=== PATIENT | female | born 1975 | race Caucasian/White ===

== ENCOUNTER 2021-06-18 17:09 | Emergency (ER) | payer OTHER, SELFPAY ==
[2021-06-18 17:18] VITALS: BP 116/77; PULSE 75; RESP 16; TEMP 36.7; O2SAT 100
--- NOTE | 2021-06-18 17:25 | ED.GENADULT ---
HPI - General Adult General Chief complaint: Upper Respiratory Infection Stated complaint: body aches/fatigue/tolliver Time Seen by Provider: 06/18/21 17:25 Source: patient and RN notes reviewed Mode of arrival: ambulatory Limitations: no limitations History of Present Illness HPI narrative: 46-year-old female presents with complaints of possible COVID-19 symptoms, headache (not the worst of her life), body aches, sore throat, and fatigue for the past 3 days. ?Vilma reports having similar symptoms a year ago when she had COVID-19. ?Tylenol took last today at 14:00 without relief. ?Denies cough or chest congestion. ?No Rhinorrhea and nasal congestion. ?Sore throat. ?Pain is bilateral. ?Hurts to swallow. ?No drooling, neck or throat swelling. ?No voice change. ?Denies fevers. ?No nausea, vomiting, and abdominal pain. ?Tolerating po intake well. ?Denies chest pain, coughing up blood, facial pain, and rash. ?Denies exposures to COVID-19. ?The patient reports she was diagnosed with COVID-30 June 2020. ?The patient reports she is not waiting for the results of a COVID-19 lab test. ?The patient reports she does not have sweats, dizziness, weakness, or myalgia. ?The patient reports she does not have a worsening cough. ?The patient reports she does not have any loss of smell or taste or diarrhea. ?Denies recent traveling. ?Vilma reports concerns for COVID-19 but no exposures. ?At this time, the patient is suspected of having COVID-19. Some parts of this dictation were generated by voice recognition software and may contain typographical and/or grammatical inaccuracies. Related Data Home Medications Medication Instructions Recorded Confirmed famotidine 20 mg tablet 20 mg PO DAILY 07/21/20 propranolol 80 mg capsule,extended 80 mg PO DAILY 07/21/20 release 24 hr Allergies Allergy/AdvReac Type Severity Reaction Status Date / Time azithromycin Allergy Severe feet and Verified 07/21/20 09:33 hands swell and throat swells Penicillins Allergy Mild Swelling Verified 07/21/20 09:33 Review of Systems Review of Systems: CONSTITUTIONAL: Denies fever, chills, sweats. Complaints of fatigue. EYES: Denies visual changes, redness, discharge. ENT: Denies rhinorrhea, congestion, otalgia. Complaints of sore throat. CARDIOVASCULAR: Denies chest pain, palpitations, edema. RESPIRATORY: Denies wheezing, dyspnea, cough. GASTROINTESTINAL: Denies abdominal pain, nausea, vomiting, diarrhea. SKIN: Denies rash or itching. MUSCULOSKELETAL: Denies acute back pain, joint pain, myalgia. Complaints of fatigue. NEUROLOGIC: Denies numbness or focal weakness. PSYCHIATRIC: Denies anxiety or depression. Complaints of TOLLIVER. All systems reviewed & are unremarkable except as noted in HPI and below. [facility] Past Medical History Medical History (Updated 06/21/21 @ 19:59 by EVARISTO Conde) Acid reflux COVID-19 06/2020 Hx of migraines Surgical History Surgical History (Updated 06/18/21 @ 17:38 by EVARISTO Conde) History of adenoidectomy History of tonsillectomy Family History Family History (Updated 06/18/21 @ 17:39 by EVARISTO Conde) Father Lymphoma in remission Mother Diabetes mellitus Social History Social History (Updated 06/18/21 @ 17:39 by EVARISTO Conde) Smoking status: Never smoker Tobacco type: cigarettes Second hand tobacco smoke exposure: No Alcohol intake: never Substance use: never Substance use type: does not use Living arrangements: with family Occupation/Education: occupation Gender identity (if verbalized by the patient): Female Sexual Orientation (if Verbalized by the Patient): Straight or Heterosexual Comments At time of signature, agree with the nurse past medical, surgical, social, and family history. There is relevant patient's history pertinent to the presenting complaintno relevant family history pertinent to the presenting complaint. Exam Narrative
[2021-06-20 17:31] LABS: SARS-CoV-2 RNA PCR Negative
== END 2021-06-18 17:51 | disposition home or self-care (01) ==
PROVIDERS: Emergency Provider Nurse Practitioner Family; PCP Family Medicine Adolescent Medicine
DX: B34.9 Viral infection, unspecified (principal); Z20.822 Contact with and (suspected) exposure to COVID-19; K21.9 Gastro-esophageal reflux disease without esophagitis; Z86.16 Personal history of COVID-19
CPT/HCPCS: 99213; C9803; G0463; U0003; U0005

== ENCOUNTER 2025-04-06 12:24 | Emergency (ER) | payer OTHER, SELFPAY ==
--- NOTE | ~2025-04-06 | XR_ITS ---
HISTORY: dropped something on foot COMPARISON: None TECHNIQUE: 3 views of the left foot were performed FINDINGS: No acute fracture or dislocation is appreciated. No significant degenerative disease is noted. The base of the fifth metatarsal is intact. A small calcaneal spur is noted, along with ossification of the insertion of the Achilles tendon. No significant soft tissue swelling is present. IMPRESSION: Degenerative disease, without acute fracture, as detailed above. Reviewed, dictated and finalized at location A.
--- NOTE | 2025-04-06 12:28 | ED_ITS ---
HPI - Extremity Injury (Lower) General Chief Complaint: Extremity Injury, Lower Stated Complaint: bruised foot Time Seen by Provider: 04/06/25 12:37 Source: patient, RN notes reviewed and old records reviewed Mode of arrival: ambulatory Limitations: no limitations History of Present Illness HPI Narrative: 49-year-old female presents to the [facility] with a bruise to the her foot. States that she dropped shower head on the foot on Sunday. Still having discomfort. Bruising is noted around the and MTP 1st, great toe, medial aspect Tenderness to the MTP Has been taking Advil Onset (ago): day(s) (5) Treatments prior to arrival: NSAIDS Related Data Allergies Allergy/AdvReac Type Severity Reaction Status Date / Time azithromycin Allergy Severe feet and Verified 04/06/25 12:31 hands swell and throat swells Penicillins Allergy Mild Swelling Verified 04/06/25 12:31 Review of Systems 2 Review of Systems: All systems reviewed & are unremarkable except as noted in HPI and below Constitutional: Constitutional: Reports no additional constitutional complaints ENT: Reports system reviewed and no additional complaints, except as documented Musculoskeletal: Musculoskeletal: Reports as per HPI Integumentary/Breasts: Skin/Breast: Reports system reviewed and no additional complaints, except as docu [facility] Past Medical History Medical History Screening mammogram, encounter for Encounter for IUD removal 06/07/11 Mirena removal/reinsertion 07/05/11 Mirena removal (migrated)/reinsertion 04/06/16 Mirena removal via hscope in [place] 04/01/21 Mirena removal/reinsertion Encounter for IUD insertion 06/10/07 Mirena insertion 06/07/11 Mirena removal/reinsertion 07/05/11 Mirena removal (migrated)/reinsertion 04/11/16 Mirena insertion 04/01/21 Mirena removal/reinsertion Acid reflux Hx of migraines COVID-19 06/2020 Surgical History Surgical History History of hysteroscopy (04/06/16) hscope IUD removal History of adenoidectomy History of tonsillectomy Family History Family History Father Lymphoma in remission Hypertension Mother Diabetes mellitus Social History Social History Smoking status: Never smoker Tobacco type: cigarettes Second hand tobacco smoke exposure: No Alcohol intake: never Substance use: never Substance use type: does not use Do You Feel Safe in your Home?: Yes Lack of Transportation: No Lack of Food: Never True Current Housing: Decline to Answer Concerned About Future Housing: Decline to Answer Difficulty Paying Gas/Electric Bills: Decline to Answer Difficulty Paying for Meds: Decline to Answer Currently Unemployed: Decline to Answer Education: Decline to Answer Difficulty w/ Childcare or Family Care: Decline to Answer Living arrangements: with family Additional living arrangements comments: Occupation/Education: occupation Additional occupation/education comments: coffee shop aide Gender identity (if verbalized by the patient): Female Sexual Orientation (if Verbalized by the Patient): Straight or Heterosexual Spiritual care concerns: No Agree to blood products: Yes Comments At the time of my signature, I reviewed and agree with the nursing past medical, surgical, social, and family history. There is no relevant family history pertinent to the patient complaint. Exam 2 Const: General: cooperative, healthy appearing, comfortable, no acute distress, well developed, alert and well nourished Nutritional Appearance: w ell nourished Orientation/consciousness: patient oriented x3 Limitations: no limitations HENMT: Head: normal to inspection Eyes: General: appearance normal, both eyes and all related structures A lignment and Position: alignment normal Neck: Neck: normal visual inspection, full ROM, no lymphadenopathy and no meningeal signs Chest: Chest palpation & inspection: normal inspection of the chest Resp: Effort & Inspection: normal respiratory effort and able to speak in complete sentences Cardio: Rate: regular rate Skin: General skin exam: normal color and no rashes or lesions noted Neuro: General: patient oriented x3, moves all extremities and no meningeal signs Cognition (Neuro): normal cognition Speech: normal speech Extrem: General: normal to inspection, full ROM, capillary refill normal and normal gait Left lower extremity: foot Details: tenderness, toes with normal ROM, ecchymosis (Around 1st MTP), vascular exam Details: dorsalis pedis pulse present and normal capillary refill and motor-sensory exam light-touch normal; no foreign bodies and no puncture wound Ankle/foot/toe images: 1. Bruising, tenderness, no swelling noted Psych: Appearance: grossly normal and well kempt Mental Status: mental status grossly normal Speech and movement: Normal speech and movement present and Clear speech present Affect: normal affect Attitude: cooperative Course Course Level of Care: Express Care Visit Vital Signs Vital signs: Vital Signs Temperature 98.5 F 04/06/25 12:36 Pulse Rate 50 L 04/06/25 12:36 Respiratory Rate 20 04/06/25 12:36 Blood Pressure 104/59 L 04/06/25 12:36 Pulse Oximetry 100 04/06/25 12:36 Oxygen Delivery Room Air 04/06/25 12:36 Temperature 98.5 F 04/06/25 12:36 Pulse Rate 50 L 04/06/25 12:36 Respiratory Rate 20 04/06/25 12:36 Blood Pressure 104/59 L 04/06/25 12:36 Pulse Oximetry 100 04/06/25 12:36 Oxygen Delivery Room Air 04/06/25 12:36 Reviewed MDM - Extremity Injury (Lower) MDM Narrative Medical decision making narrative: Patient sitting in exam room. Patient is nontoxic vitals are stable. Patient presents with bruising and tenderness to surrounding tissue near the MTP 1st left foot. Patient x-rays negative. Patient is appropriate for outpatient treatment with close follow-up Discharge instructions reviewed with patient, as well as provided in writing per nursing staff. The instructions also include specific and strict return/GO TO THE ER as well as f/u information. All questions have been answered, and the patient deny any further questions with discharge and discharge plan. Some parts of this dictation were generated by voice recognition software and may contain typographical and/or grammatical inaccuracies. Differential Diagnosis Differential diagnosis: Likely other (Foot contusion, foot fracture) Imaging Data Radiologist's impression: HISTORY: dropped something on foot COMPARISON: None TECHNIQUE: 3 views of the left foot were performed FINDINGS: No acute fracture or dislocation is appreciated. No significant degenerative disease is noted. The base of the fifth metatarsal is intact. A small calcaneal spur is noted, along with ossification of the insertion of the Achilles tendon. No significant soft tissue swelling is present. IMPRESSION: Degenerative disease, without acute fracture, as detailed above. Critical Care Time Critical Care Time Critical Care Time: No Discharge Plan Discharge Clinical Impression: Contusion of left foot Qualifiers: Encounter type: initial encounter Qualified Code(s): S90.32XA - Contusion of left foot, initial encounter Patient Disposition: Home Condition: Stable Instructions: Antibiotic Form, Contusion in Adults (ED) Additional Instructions: Your Xray did not show a fracture. Wear good supportive shoes at all times. Ice should be applied to help reduce swelling. It can be used for 20 to 30 minutes, every 2-3 hours while awake. Do not apply ice directly to your skin. You can alternate ibuprofen 600mg and Tylenol 650mg every 4 hours as needed for pain Please schedule a follow-up visit with your personal physician for further evaluation and treatment within 2 weeks especially if symptoms persist. For new or worsening symptoms go directly to the emergency room Patient Language: Maltese Prescriptions: No Action famotidine 20 mg tablet 20 mg PO BID Qty: 60 5RF propranolol 80 mg tablet See Rx Instructions .ROUTE .COMPLEX Qty: 180 0RF Dose Instruction: TAKE 1 TABLET BY MOUTH TWICE DAILY Rx Instructions: TAKE 1 TABLET BY MOUTH TWICE DAILY Follow-up/Referrals: Blayne Snyder MD [Primary Care Provider] - 2 Weeks ([facility] care follow up ) Time of Disposition: 13:34
[2025-04-06 12:36] VITALS: BP 104/59; PULSE 50; RESP 20; TEMP 36.9; O2SAT 100
== END 2025-04-06 13:40 | disposition home or self-care (01) ==
PROVIDERS: Emergency Provider Nurse Practitioner; PCP Family Medicine Adolescent Medicine
DX: S90.32XA Contusion of left foot, initial encounter (principal); W20.8XXA Other cause of strike by thrown, projected or falling object, initial encounter; K21.9 Gastro-esophageal reflux disease without esophagitis; Z86.16 Personal history of COVID-19
CPT/HCPCS: 73630; 99213; G0463

== ENCOUNTER 2025-05-07 10:02 | Emergency (ER) | payer OTHER, SELFPAY ==
[2025-05-07 10:11] VITALS: BP 100/69; PULSE 56; RESP 20; TEMP 36.7; O2SAT 100
--- NOTE | 2025-05-07 10:14 | ED.URI ---
HPI - URI/Sore Throat General Chief Complaint: Upper Respiratory Infection Stated Complaint: Sore Throat Time Seen by Provider: 05/07/25 10:14 History of Present Illness HPI Narrative: 50 y/o female presented for c/o sore throat and left ear pain x5 days. States it feels like 'swallowing knives.' Pain is worse on the left side of the throat as well. Endorses nasal congestion and drainage, sinus pressure and mild cough for 2 weeks. hx tonsillectomy. Pt had negative home covid test. Taking Zyrtec D, Nyquil, and Chloraseptic spray. Related Data Allergies Allergy/AdvReac Type Severity Reaction Status Date / Time azithromycin Allergy Severe feet and Verified 05/07/25 10:07 hands swell and throat swells Penicillins Allergy Mild Swelling Verified 05/07/25 10:07 Review of Systems Review of Systems: CONSTITUTIONAL: Denies body aches, fever, chills, or sweats. EYES: Denies visual changes, redness, or discharge. ENT: reports sore throat rhinorrhea, congestion, otalgia. CARDIOVASCULAR: Denies chest pain, palpitations, or edema. RESPIRATORY: Denies dyspnea. GASTROINTESTINAL: Denies abdominal pain, nausea, vomiting, or diarrhea. SKIN: Denies rash NEUROLOGIC: Denies headache PMFSH Past Medical History Medical History Screening mammogram, encounter for Encounter for IUD removal 06/07/11 Mirena removal/reinsertion 07/05/11 Mirena removal (migrated)/reinsertion 04/06/16 Mirena removal via hscope in OR 04/01/21 Mirena removal/reinsertion Encounter for IUD insertion 06/10/07 Mirena insertion 06/07/11 Mirena removal/reinsertion 07/05/11 Mirena removal (migrated)/reinsertion 04/11/16 Mirena insertion 04/01/21 Mirena removal/reinsertion Acid reflux Hx of migraines COVID-19 06/2020 Surgical History Surgical History History of hysteroscopy (04/06/16) hscope IUD removal History of adenoidectomy History of tonsillectomy Family History Family History Father Lymphoma in remission Hypertension Mother Diabetes mellitus Social History Social History Smoking status: Never smoker Tobacco type: cigarettes Second hand tobacco smoke exposure: No Alcohol intake: never Substance use: never Substance use type: does not use Do You Feel Safe in your Home?: Yes Lack of Transportation: No Lack of Food: Never True Current Housing: Decline to Answer Concerned About Future Housing: Decline to Answer Difficulty Paying Gas/Electric Bills: Decline to Answer Difficulty Paying for Meds: Decline to Answer Currently Unemployed: Decline to Answer Education: Decline to Answer Difficulty w/ Childcare or Family Care: Decline to Answer Living arrangements: with family Additional living arrangements comments: Occupation/Education: occupation Additional occupation/education comments: dietary aide cook Gender identity (if verbalized by the patient): Female Sexual Orientation (if Verbalized by the Patient): Straight or Heterosexual Spiritual care concerns: No Agree to blood products: Yes Exam Narrative: GENERAL: mildly Ill-appearing, no acute distress. EYES: conjunctivae clear ENT: Mucous membranes moist. TMs pearly shah with normal light reflex bilaterally; no tragal tenderness. Oropharynx not erythematous without lesions. Tonsils absent No drooling, no hoarseness, no trismus, uvula midline. No tripod positioning, hot potato voice, or soft palate swelling. NECK: Supple. No lymphadenopathy CHEST: Clear to auscultation, breath sounds equal. No respiratory distress, speaks in full sentences. HEART: Regular rate and rhythm. No murmur heard. SKIN: Warm, dry, no rash. NEURO: Alert and oriented x3. Course Course Emergency Course: Patient is aware of diagnosis, understands and agrees to treatment plan. Anticipatory guidance given. Patient agrees to follow-up as directed and is aware of reasons to seek care at the emergency department. Portions of this record may have been created with voice recognition software Level of Care: Express Care Visit Vital Signs Vital signs: Vital Signs Temperature 98.1 F 05/07/25 10:11 Pulse Rate 56 L 05/07/25 10:11 Respiratory Rate 20 05/07/25 10:11 Blood Pressure 100/69 05/07/25 10:11 Pulse Oximetry 100 05/07/25 10:11 Oxygen Delivery Room Air 05/07/25 10:11 Temperature 98.1 F 05/07/25 10:11 Pulse Rate 56 L 05/07/25 10:11 Respiratory Rate 20 05/07/25 10:11 Blood Pressure 100/69 05/07/25 10:11 Pulse Oximetry 100 05/07/25 10:11 Oxygen Delivery Room Air 05/07/25 10:11 MDM - URI/Sore Throat MDM Narrative Medical decision making narrative: neg strep result reviewed with pt. Rx URI > 1 week. Advise supportive treatments. Patient is appropriate for outpatient treatment and follow-up. Differential Diagnosis Differential diagnosis: Likely upper respiratory infection, viral infection and pharyngitis Discharge Plan Discharge Clinical Impression: Upper respiratory infection Patient Disposition: Home Condition: Stable Instructions: Antibiotic Form, Upper Respiratory Infection (ED) Additional Instructions: Take antibiotic as directed Recommendations: Flonase spray and Zyrtec (or Claritin/Melly) over the counter Cough syrup may cause drowsiness; avoid driving or take it at night time. Tylenol 1000mg every 8 hours as needed for pain Symptomatic treatment includes: rest, fluids, and increase humidity of the air at home. Follow up with your primary care provider in 1 week. Go to the ER for worsening symptoms or concerns. Patient Language: Comoran Prescriptions: New doxycycline hyclate 100 mg tablet 100 mg PO BID 5 Days Qty: 10 0RF No Action propranolol 80 mg tablet 80 mg PO BID Qty: 180 0RF Follow-up/Referrals: Blayne Snyder MD [Primary Care Provider] -
[2025-05-07 11:57] LABS: EDSTREPNEGPOS1 Positive (Negative)
== END 2025-05-07 10:30 | disposition home or self-care (01) ==
PROVIDERS: Emergency Provider Nurse Practitioner Family; PCP Family Medicine Adolescent Medicine
DX: J06.9 Acute upper respiratory infection, unspecified (principal); K21.9 Gastro-esophageal reflux disease without esophagitis; Z86.16 Personal history of COVID-19
CPT/HCPCS: 87081; 87880; 99213; G0463